=== PATIENT | female | born 1970 ===

== ENCOUNTER 2018-04-08 09:10 | Day surgery (SDC) | payer OTHER ==
--- NOTE | 2018-04-07 21:45 | PDGENHP ---
History and Physical - Chief Complaint RIGHT HIP PAIN - History of Present Illness 1. Bilateral~Femoroacetabular impingement (CHIO) Cam type,~with~resultant labral tear, Cartilage damage (right side more symptomatic than left) 2. Bilateral~early/medial~Osteoarthritis 3. Bilateral clincal~relative~femoral retrotorsion HISTORY OF PRESENT ILLNESS: Aleksandrais a 46 y.o.~very~~active female~who I have had the pleasure to consult on today. 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 ~Aleksandra enjoys long distance swimming (2500 - 5000 yards). Maggie's~bilateral~hip pain started 3 years ago (right worse than left), with~no~ recalled trauma or injury, and with no~previous complaints. Aleksandradoes not have~a known history of hip dysplasia. Was having some groin/adductor muscle cramping before then occasionally. Presentation today is of~anterior~bilateral~hip pain - deep groin. ~The hip~does ~wake her~at night and does~click and catch on her. Sitting~can be a real struggle~for her.~Aleksandradoes~report suffering from lower back pain episodes (has had > 5 back surgeries for multiple slipped discs).~Standing can really exacerbate her pain. Swimming was okay, but now it hurts to do flip turns and being sore the next day as well.~ Maggie~has~participated in physical therapy and has~not~tried other conservative measures including.~She~has not~received sufficient symptomatic improvement. Maggie~has~utilized medication for pain management, including NSAID.~Aleksandrahas used medication for a couple of years~~. Aleksandraunderstands that she~has a hip and pelvis problem which should be researched and wishes to get a better understanding of her~hip status, followed by an establishment of a treatment strategy, hoping she~would be able to get back to her~well being active life. History: Past medical history:~~ Patient~~has no past medical history on file. Relevant familial history:~None which is relevant~ Past surgical history:~ cervical spine fusion 2015, thoracic discectomies ~2013, lumbar fusion L4-S1 and rotator cuff repair 2007 Aleksandradenies problematic issues with general anesthesia in the past. I have reviewed, verified and agree with the past medical, surgical, family and social history. Current Medications:~has a current medication list which includes the following prescription(s): clobetasol, cyclobenzaprine, ergocalciferol (vitamin d2), gabapentin, metformin, and methocarbamol. ALLERGIES:~is allergic to sulfa (sulfonamide antibiotics). Objective: Physical Examination: Aleksandrais 5~feet 11~inches tall and weighs 240~Lbs. Aleksandrais AAO x3; she~is well- nourished, in NAD. Skin is warm and dry. ~Breathing is non-labored. ~CV with RRR by pulse. Abdomen is soft, NTND. Currently,~she~walks with a normal~gait. Trendelenburg sign is~negative~and proprioception is reduced,~both~sides. She~presents with mild~signs of joint laxity. Beightons Score:~4 ~ Lower spine examination is~negative~for sciatic or femoral nerve irritation with negative~SLR &~femoral stretch tests. Range of motion of the spine is normal~for flexion, extension, and rotations, with no~associated pain. Strength, Sensation and pulses are~normal -~bilaterally Ankles and knees exams are~normal~and no~mal-alignment is evident. She~has left~1~cm short leg length discrepancy. Thigh circumference is~symmetric~with no evidence for muscle atrophy~on both~ sides. Hip ROM (degrees): FL ER At 90~hip FL IR At 90~hip FL AB AD EX IR Neutral hip ER Neutral hip R 95pain 45 15pain 45 5 10 40 40 L 100pain 45 5 45 5 10 30 50 Specific hip and pelvis tests: Impingement Test RUDDY Roll Add. Longus R +++ +++ Negative + L +++ +++ Negative + Glut. Med ITB Posterior Imp R Negative 5/5 strength Negative 4+/5 strength Negative L Negative 5/5 strength Negative 5/5 strength Negative Squeeze test measured~normal Bony Symphysis pubis is~painful~to touch while concentric activity of the rectus abdominis, does not~produce pain at its insertion. Ilio Psos specific tests are~positive for pain during cycling for~both hips~and remarkable for nothing further HF has~weakness on the right 4+/5~~. Lateral and~capsule tenderness bilaterally Greater trochanteric burse is~painful~on the right hip. Piriformis tests: FAIR is~negative,~with no~local signs of neuritis related to sciatic nerve. SIJs examination is~produces pain on~both sides~with normal~RUDDY in relation and local tenderness. Hamstrings tests are~negative~both hips. On a daily basis, the following percentages reflect~Maggie's overall total pain: Deep hip:~>90% GT/SI:~~10% Imaging: Radiology studies which I have personally reviewed, analyzed and measured are below: XR: AP of the hip and pelvis: Performed in a~good~technique Coccyx to pubic symphysis distance~1.8~cm. 0~degrees cauda [place] Lines are~preserved. No~Pathological signs are seen in the Symphysis Pubis. No~Pathological signs are seen at the Ischial tuberosity. ~ Specific measurements show: NSA~ LCE Sourcil~Angle Sharp's angle Lat. Cam Lat. Pincer C.Over~sign Head~Coverage % ATDmm R 128 32 5 40 N N N 91 + L 127 27 9 41 N N 1:30 89 + Pos. wall sign ISS NAD ~~Dysplasia Comments R Negative Negative 14.5~mm Negative Medial and inferior joint space narrowing L Negative Negative 15.3~mm Negative Same, but less than above Sclerosis Sup. Lat. OA Cysts Joint Space-WBZ Joint Space-Medial R ++ + Negative 5.5~mm 2.1~mm L + + Negative 5.0~mm 2.9~mm X Table lateral: Anterior cam lesion is~not seen~on both hips. Alpha Angle: ~ Right~62~dergrees Left~63~degrees MRI shows:~ 06/27/17 on the right shows cartilage thinning medially especially, pitting femoral head/neck cyst, small anterior subchondral acetabular cyst, labral tear. Left hip MRI from 08/08 shows cartilage thinning, labral tear and with no subchondral edema.~Bilateral partial hamstrings tear/increased proximal/ insertional edema. Impression and plan:~ Maggie~is a 46 y.o.~active female~suffering from symptomatic Right~hip pain due to Right~Femoroacetabular impingement (CHIO) Cam type,~with~resultant labral tear,~ Right~Advanced Osteoarthritis~causing significant disability to her~and altering her~sport and life activities. Physical examination, imaging, and~her~story correspond with the diagnosis mentioned above. We explained that a hip preservation procedure (arthroscopy)~might serve as a bridging procedure to try and buy as much time as possible, keeping her~rosebud joint before joint replacement would be unavoidable. With that in mind, the outlined treatment options are: (1) To wait for THR utilizing pain medication, intra articular injections~(such as PRP)~and lifestyle modification (to avoid or reduce symptoms); (2) THR now as an end-point procedure understanding the life-modifications associated with this procedure regarding activity level; or (3) Hip preservation surgery, specifically hip arthroscopy, to address labral, cartilage and bony pathology (with the possibility of reconstructing the labrum if needed). This last option comes~with the understanding of what is outlined above, specifically that this may not work as it usually does with biologically more preserved joints, and that based on~her~age, gender, and joint characteristics, the results are less reproducible than in younger subjects. Additionally, this surgery does~not eliminate the possibility for future THR. If the hip preservation technique fails~to yield the expected results, THR can be done promptly. I have explained that because of her age and gender, the results of hip arthroscopy are less reproducible/predictable than with younger patients or male patients of the same age. Maggie~will review the info presented. In order to obtain more detailed information regarding the alignment, orientation, and shape of the bony hip and pelvis I will order a CT scan to be performed. The results of the CT scan, including femoral torsion and acetabular version measured values and 3D images, will aid me in deciding on the best treatment strategy and surgical pre-planning. Maggie~is happy with this plan. I have also supplied~her~with handouts, outlining the expected surgical treatment and rehab involved. I wish~Maggie~all the best, ~~ Joni Altamirano MD History Information - Allergies/Home Medication List Allergies/Adverse Reactions: adhesive Allergy (Verified 03/28/18 11:06) RASH & HIVES Sulfa (Sulfonamide Antibiotics) Allergy (Verified 03/28/18 11:06) TOTAL BODY RASH & HIVES Home Medications: Herbals/Supplements -Info Only 03/28/18 [Last Taken Unknown] Naproxen 03/28/18 [Last Taken Unknown] I have personally reviewed and updated: medical history - Social History Smoking Status: Never smoked Review of Systems Review of Systems: Physical Exam Physical Exam:
[2018-04-08] MEDS ORDERED: BUPIVACAINE/EPI 0.25% 30 ML SDV ONE (09:24)
[2018-04-08] MEDS ORDERED: EPINEPHrine 30 MG/30 ML MDV (0.1 MG/0.1 ML) ONE (09:24)
[2018-04-08] MEDS ORDERED: PREGABALIN 150 MG CAP PO ONE (09:44)
[2018-04-08] MEDS ORDERED: ceFAZolin 2 GM/DEXTROSE 100 ML IV ONE (09:44)
[2018-04-08] MEDS ORDERED: ACETAMINOPHEN 500 MG TAB PO ONE (09:44)
[2018-04-08] MEDS ORDERED: LR 1,000 ML IV ONE (09:45)
[2018-04-08] MEDS ORDERED: MIDAZOLAM 2 MG/2 ML VIAL IVP ONE (09:57)
--- NOTE | 2018-04-08 09:57 | PDANEPAE ---
ANE History of Present Illness here for hip arthroscopy R side ANE Past Medical History - Cardiovascular History Hx Hypertension: No Hx Arrhythmias: No Hx Chest Pain: No Hx Coronary Artery / Peripheral Vascular Disease: No Hx CHF / Valvular Disease: No Hx Palpitations: No Cardiovascular History Comment: HORMONAL PALPITATIONS POST - Pulmonary History Hx COPD: No Hx Asthma/Reactive Airway Disease: No Hx Recent Upper Respiratory Infection: No Hx Oxygen in Use at Home: No Hx Sleep Apnea: Yes Sleep Apnea Screening Result - Last Documented: Positive Pulmonary History Comment: SLEEP APNEA POS W/CPAP. EXERCISE INDUCED ASTHMA YOUNG ADULT - Neurologic History Hx Cerebrovascular Accident: No Hx Seizures: No Hx Dementia: No Neurologic History Comment: HEADACHES WHEN YOUNGER - Endocrine History Hx Diabetes: No - Renal History Hx Renal Disorders: No - Liver History Hx Hepatic Disorders: No - Neurological & Psychiatric Hx Hx Neurological and Psychiatric Disorders: No - Cancer History Hx Cancer: No - Congenital Disorder History Hx Congenital Disorders: No - GI History Hx Gastrointestinal Disorders: No - Other Health History Other Health History: NEG - Chronic Pain History Chronic Pain: Yes (ANJEL HIPS,R KNEE, L FOOT PLANTAR FASCITIS) - Surgical History Prior Surgeries: SPINAL FUSION LUMBAR X2. THORACIC DISCECTOMY X2. CERVICAL FUSION X1. CERVICAL DISC X1. C SECTION X2. LAP BAND IMPLANT & REMOVED. R KNEE SCOPE. CARPAL TUNNEL ANJEL ANE Review of Systems Review of Systems: - Exercise capacity METS (RN): 5 METS ANE Patient History - Allergies Allergies/Adverse Reactions: adhesive Allergy (Verified 03/28/18 11:06) RASH & HIVES Sulfa (Sulfonamide Antibiotics) Allergy (Verified 03/28/18 11:06) TOTAL BODY RASH & HIVES - Home Medications Home medications: home medication list seen and reviewed Home Medications: Herbals/Supplements -Info Only 03/28/18 [Last Taken Unknown] Naproxen 03/28/18 [Last Taken Unknown] - NPO status NPO Status: no food or drink >8 hours - Anes Hx Anes Hx: no prior problems - Smoking Hx Smoking Status: Never smoked - Alcohol Use Alcohol Use: Occasionally - Family Anes Hx Family Anes Hx: none ANE Labs/Vital Signs - Vital Signs Vital Signs: reviewed preoperatively; see RN documention for details Height: 181.61 cm Weight: 113.398 kg ANE Physical Exam - Airway Neck exam: FROM Mallampati Score: Class 2 Mouth exam: normal dental/mouth exam - Pulmonary Pulmonary: no respiratory distress, clear to auscultation - Cardiovascular Cardiovascular: regular rate and rhythym, no murmur, rub, or gallop - ASA Status ASA Status: II ANE Anesthesia Plan Anesthesia Plan: GA w LMA
[2018-04-08] MEDS ORDERED: PROPOFOL 200 MG/20 ML VIAL ONE (10:01)
[2018-04-08] MEDS ORDERED: fentaNYL 100 MCG/2 ML INJ ONE ×3 (10:01→16:30)
[2018-04-08] MEDS ORDERED: LIDOCAINE 2% 100 MG/5 ML SYR ONE (10:03)
[2018-04-08] MEDS ORDERED: ONDANSETRON 4 MG/2 ML VIAL ONE ×2 (13:25→16:30)
[2018-04-08] MEDS ORDERED: DEXAMETHASONE 4 MG/ML VIAL ONE (13:25)
[2018-04-08] MEDS ORDERED: ceFAZolin 1 GM VIAL ONE (15:31)
[2018-04-08] MEDS ORDERED: PROMETHAZINE HCL 25 MG/ML INJ IVP PRN (16:06)
[2018-04-08] MEDS ORDERED: ACETAMINOPHEN 500 MG TAB PO PRN (16:06)
[2018-04-08] MEDS ORDERED: NALOXONE HCL 0.4 MG/ML INJ IVP PRN (16:06)
[2018-04-08] MEDS ORDERED: oxyCODONE IR 5 MG TAB PO PRN (16:06)
[2018-04-08] MEDS ORDERED: ONDANSETRON 4 MG/2 ML VIAL IVP PRN (16:06)
[2018-04-08] MEDS ORDERED: HYDROCODONE/APAP 5/325 TAB PO PRN (16:06)
--- NOTE | 2018-04-08 16:08 | POSTANESTH ---
Post Anesthetic Evaluation Cardiovascular Status: Normal, Stable, Similar to Pre-Op Cond Respiratory Status: Normal, Stable, Requires Airway Assist Level of Consciousness/Mental Status: Mildly Sleepy, Arousable Pain Control: Adequate, Prn Tx Ordered Nausea/Vomiting Control: Adequate, Prn Tx Ordered Complications Possibly Related to Anesthesia: None Noted
[2018-04-08] MEDS ORDERED: HYDROmorphONE/DILAUDID 2 MG/ML INJ ONE (16:30)
[2018-04-08] MEDS: fentaNYL 100 MCG/2 ML INJ IVP PRN ×3 (16:32→17:12)
[2018-04-08] MEDS: HYDROmorphONE/DILAUDID 2 MG/ML INJ IVP PRN ×4 (16:33→17:23)
[2018-04-08] MEDS ORDERED: PROMETHAZINE HCL 25 MG/ML INJ ONE (16:39)
[2018-04-08] MEDS ORDERED: oxyCODONE IR 5 MG TAB ONE (17:21)
[2018-04-08] MEDS ORDERED: ACETAMINOPHEN 500 MG TAB ONE (17:21)
--- NOTE | 2018-04-08 18:22 | POSTOPPROG ---
Post Op Note Date of Operation: 04/08/18 Surgeon: Joni Altamirano Baseball Inspector: Dr Albrecht Anesthesia: GET(General Endotracheal) Pre-op Diagnosis: RIGHT CHIO Post-op Diagnosis: RIGHT CHIO Procedure: Right Hip Arthroscopy Inf/Abcess present in the surg proc area at time of surgery?: No
[2018-04-08] MEDS ORDERED: HYDROCODONE/APAP 5/325 TAB ONE (20:21)
[2018-04-08 20:23] VITALS: BP 129/70
== END 2018-04-08 20:25 | disposition home or self-care (01) ==
LOC: FSGY 09:10
PROVIDERS: ATTEND Orthopaedic Surgery Sports Medicine
PROC: 0SB94ZZ Excision of Right Hip Joint, Percutaneous Endoscopic Approach (ICD-10-PCS; principal; 2018-04-08 11:00)
PROC: 0SQ94ZZ Repair Right Hip Joint, Percutaneous Endoscopic Approach (ICD-10-PCS; principal; 2018-04-08 11:00)
PROC: BQ101ZZ Fluoroscopy of Right Hip using Low Osmolar Contrast (ICD-10-PCS; principal; 2018-04-08 11:00)
DX: M25.851 Other specified joint disorders, right hip (principal); M16.11 Unilateral primary osteoarthritis, right hip; M65.9 Synovitis and tenosynovitis, unspecified; M21.759 Unequal limb length (acquired), unspecified femur; Z98.1 Arthrodesis status; Z88.2 Allergy status to sulfonamides; G47.33 Obstructive sleep apnea (adult) (pediatric)
CPT/HCPCS: C1713; J0171; J0690; J1100; J1170; J2001; J2250; J2405; J2550; J2704; J3010

== ENCOUNTER 2018-10-15 05:55 | Day surgery (SDC) | payer OTHER | END 2018-10-15 17:10 | disposition home or self-care (01) | LOC: FSGY 05:55 ==